=== PATIENT | female | born 1980 | race Caucasian/White ===

== ENCOUNTER 2016-08-14 05:59 | Outpatient (CLI) | payer BC ==
[~2016-08-14] VITALS: Ht 157.5 cm; Wt 63.5 kg
[~2016-08-14 05:59] MED LIST: BENZ56AE TP; DCS100C PO; FERR325C PO; FRS325T PO; IBP600T1 PO; PREN-93 PO; TRAM-42 PO
--- OUTSIDE RECORDS SUMMARY | 2016-08-14 06:03 | XMS REPORT | Continuity of Care Document ---
Author Author [facility] Organization [facility] Address Unknown Phone Unavailable Allergies Active Description Code Type Severity Reaction Onset Reported/Identified Relationship to Patient Clinical Status Yes codeine [id number] Drug Allergy Unknown N/A 10/02/2005 Yes Penicillins [id number] Drug Allergy Unknown N/A 10/02/2005 Medications Problems Date Dx Coded Attending Type Code Diagnosis Diagnosed By 11/10/2013 SALLY SOLOMON DO Ot 659.71 ABN DEL FET HT RT/RHYTHM,W OR W/O MENTIO 11/10/2013 SALLY SOLOMON DO Ot V06.1 [id number], COMBINED [ 11/10/2013 SALLY SOLOMON DO Ot V27.0 DELIVER-SINGLE LIVEBORN 09/16/2015 OBI DELEON MD, Ot S02.401A MAXILLARY FRACTURE, UNSP, INIT ENCNTR FO 09/16/2015 OBI DELEON MD Ot S02.8XXA FRACTURES OF OTH SKULL AND FACIAL BONES, 09/16/2015 OBI DELEON MD Ot W21.07XA STRUCK BY SOFTBALL, INITIAL ENCOUNTER 09/16/2015 OBI DELEON MD Ot Y92.[address] 09/16/2015 OBI DELEON MD Ot Y93.64 ACTIVITY, BASEBALL 09/16/2015 OBI DELEON MD Ot Y99.8 OTHER EXTERNAL CAUSE STATUS 09/17/2015 OBI DELEON MD Ot S02.401A MAXILLARY FRACTURE, UNSP, INIT ENCNTR FO 09/17/2015 OBI DELEON MD Ot S02.8XXA FRACTURES OF OTH SKULL AND FACIAL BONES, 09/17/2015 OBI DELEON MD Ot W21.07XA STRUCK BY SOFTBALL, INITIAL ENCOUNTER 09/17/2015 ADRIENNE TANNER, OBI Esteves Ot Y92.[address] 09/17/2015 ADRIENNE TANNER, OBI Esteves Ot Y93.64 ACTIVITY, BASEBALL 09/17/2015 ADRIENNE TANNER, OBI Esteves Ot Y99.8 OTHER EXTERNAL CAUSE STATUS 10/21/2015 Ot 620.2 OVARIAN CYST NEC/NOS 10/21/2015 SALLY SOLOMON DO Ot 789.00 ABDOMINAL PAIN, UNSPECIFIED SITE 10/22/2015 QUICK, PRAFUL W GUITAR REPAIRER Ot N64.4 MASTODYNIA 10/27/2015 QUICK, PRAFUL W GUITAR REPAIRER Ot N64.4 MASTODYNIA 11/03/2015 QUICK, PRAFUL Balwinder GUITAR REPAIRER Ot N64.4 MASTODYNIA 05/03/2016 Ot 620.2 OVARIAN CYST NEC/NOS 05/03/2016 SALLY SOLOMON DO Ot 789.00 ABDOMINAL PAIN, UNSPECIFIED SITE 05/03/2016 QUICK, PRAFUL W GUITAR REPAIRER Ot N64.4 MASTODYNIA 05/04/2016 QUICK, PRAFUL Britt GUITAR REPAIRER Ot N83.202 UNSPECIFIED OVARIAN CYST, LEFT SIDE 05/04/2016 QUICK, PRAFUL Britt GUITAR REPAIRER Ot R10.2 PELVIC AND PERINEAL PAIN 05/17/2016 QUICK, PRAFUL Britt GUITAR REPAIRER Ot N83.202 UNSPECIFIED OVARIAN CYST, LEFT SIDE 05/17/2016 QUICK, PRAFUL Britt GUITAR REPAIRER Ot R10.2 PELVIC AND PERINEAL PAIN Procedures Code Description Performed By Performed On 73.6 EPISIOTOMY 2013 Results Encounters ACCT No. Visit Date/Time Discharge Status Pt. Type Provider Facility Loc./Unit Complaint [id number] 09/16/2015 20:49:00 2015 22:34:00 DIS Emergency ADRIENNE TANNER, OBI Esteves [facility] ER FACE INJ [id number] 11/08/2013 21:57:00 2013 13:35:00 DIS Inpatient SALLY SOLOMON DO [facility] LDRP [place] [id number] 05/09/2013 07:52:00 2012 23:59:59 CLS Outpatient SALLY SOLOMON DO [facility] RAD ABD PAIN [id number] 08/14/2016 05:59:00 ACT Outpatient POLLY GRAY MD [facility] PREOP ABD PAIN [id number] 05/03/2016 10:14:00 ACT Outpatient PRAFUL BAUER [facility] RAD PELVIC PAIN [id number] 10/21/2015 08:48:00 ACT Outpatient PRAFUL BAUER [facility] RAD PAIN LT BREAST [id number] 03/10/2011 08:23:00 Document Registration
[2016-08-14] MEDS ORDERED: LACT1CAP74 PO (12:42)
[2016-08-14] MEDS ORDERED: MULT1CAP27 PO (12:42)
[2016-08-16] MEDS ORDERED: DICY10CA59 PO (11:21)
== END 2016-08-14 12:45 ==
LOC: PREOP 05:59
PROVIDERS: ATTEND Surgery Pediatric Surgery
DX: Z01.818 Encounter for other preprocedural examination (principal); K92.1 Melena

== ENCOUNTER 2016-08-16 08:30 | Day surgery (SDC) | payer BC ==
[~2016-08-16] VITALS: Ht 157.5 cm; Wt 63.5 kg
[~2016-08-16 08:30] MED LIST changes: -CATHETER FLUSH 10 ML SYR IV PRN; -DICY10CA59 PO; -IOHEXOL 350 MG/ML 100 ML (OMNIPAQUE 350) VIAL IV ONE; -NS 100 ML (IVPB) BAG IV ONE
--- OUTSIDE RECORDS SUMMARY | 2016-08-16 08:34 | XMS REPORT | Continuity of Care Document ---
Author Author [facility] Organization [facility] Address Unknown Phone Unavailable Allergies Active Description Code Type Severity Reaction Onset Reported/Identified Relationship to Patient Clinical Status Yes codeine [id number] Drug Allergy Unknown N/A 10/02/2005 Yes Penicillins [id number] Drug Allergy Unknown N/A 10/02/2005 Medications Problems Date Dx Coded Attending Type Code Diagnosis Diagnosed By 11/10/2013 SALLY SOLOMON DO Ot 659.71 ABN DEL FET HT RT/RHYTHM,W OR W/O MENTIO 11/10/2013 SALLY SOLOMON DO Ot V06.1 [id number], COMBINED [ 11/10/2013 SALLY SOLOMON DO Ot [...] PAIN, UNSPECIFIED SITE 10/22/2015 QUICK, PRAFUL W POWERHOUSE MECHANIC SUPERVISOR Ot N64.4 MASTODYNIA 10/27/2015 QUICK, PRAFUL W POWERHOUSE MECHANIC SUPERVISOR Ot N64.4 MASTODYNIA 11/03/2015 QUICK, PRAFUL W POWERHOUSE MECHANIC SUPERVISOR Ot N64.4 MASTODYNIA 05/03/2016 Ot 620.2 OVARIAN CYST NEC/NOS 05/03/2016 SOLOMON DO, SALLY C Ot 789.00 ABDOMINAL PAIN, UNSPECIFIED SITE 05/03/2016 QUICK, PRAFUL W POWERHOUSE MECHANIC SUPERVISOR Ot N64.4 MASTODYNIA 05/04/2016 QUICK, PRAFUL W POWERHOUSE MECHANIC SUPERVISOR Ot N83.202 UNSPECIFIED OVARIAN CYST, LEFT SIDE 05/04/2016 QUICK, PRAFUL W POWERHOUSE MECHANIC SUPERVISOR Ot R10.2 PELVIC AND PERINEAL PAIN 05/17/2016 QUICK, PRAFUL W POWERHOUSE MECHANIC SUPERVISOR Ot N83.202 UNSPECIFIED OVARIAN CYST, LEFT SIDE 05/17/2016 QUICK, PRAFUL W POWERHOUSE MECHANIC SUPERVISOR Ot R10.2 PELVIC AND PERINEAL PAIN 08/15/2016 MARINA TANNER, POLLY Ot K92.1 MELENA 08/15/2016 POLLY GRAY MD Ot Z01.818 ENCOUNTER FOR OTHER PREPROCEDURAL EXAMIN Procedures Code Description Performed By Performed On 73.6 EPISIOTOMY 2013 Results Encounters ACCT No. Visit Date/Time Discharge Status Pt. Type Provider Facility Loc./Unit Complaint [id number] 08/14/2016 05:59:00 2016 12:45:00 DIS Outpatient POLLY GRAY MD [facility] PREOP ABD PAIN [id number] 09/16/2015 20:49:00 2015 22:34:00 DIS Emergency OBI DELEON MD [facility] ER FACE INJ [id number] 11/08/2013 21:57:00 2013 13:35:00 DIS Inpatient SALLY SOLOMON DO [facility] LDRP PACHECO T[place]ARES [id number] 05/09/2013 07:52:00 2012 23:59:59 CLS Outpatient SALLY SOLOMON DO [facility] RAD ABD PAIN [id number] 08/16/2016 07:51:00 ACT Outpatient POLLY GRAY MD [facility] RAD ABD PAIN,PELVIC PAIN [id number] 05/03/2016 10:14:00 ACT Outpatient PRAFUL BAUER [facility] RAD PELVIC PAIN [id number] 10/21/2015 08:48:00 ACT Outpatient PRAFUL BAUER [facility] RAD PAIN LT BREAST [id number] 03/10/2011 08:23:00 Document Registration
[2016-08-16 08:35] VITALS: BP 116/80
--- OUTSIDE RECORDS SUMMARY | 2016-08-16 08:35 | XMS REPORT | Continuity of Care Document ---
Author Author [facility] Organization [facility] Address Unknown Phone Unavailable Allergies Active Description Code Type Severity Reaction Onset Reported/Identified Relationship to Patient Clinical Status Yes codeine [id number] Drug Allergy Unknown N/A 10/02/2005 Yes Penicillins [id number] Drug Allergy Unknown N/A 10/02/2005 Medications Problems Date Dx Coded Attending Type Code Diagnosis Diagnosed By 11/10/2013 SALLY SOLOMON DO Ot 659.71 ABN DEL FET HT RT/RHYTHM,W OR W/O MENTIO 11/10/2013 SALLY SOLOMON DO Ot V06.1 [id number], COMBINED [ 11/10/2013 SALLY SOLOMON DO Ot [...] PAIN, UNSPECIFIED SITE 10/22/2015 QUICK, PRAFUL W CALIBRATION TESTER Ot N64.4 MASTODYNIA 10/27/2015 QUICK, PRAFUL W CALIBRATION TESTER Ot N64.4 MASTODYNIA 11/03/2015 QUICK, PRAFUL W CALIBRATION TESTER Ot N64.4 MASTODYNIA 05/03/2016 Ot 620.2 OVARIAN CYST NEC/NOS 05/03/2016 SOLOMON DO, SALLY C Ot 789.00 ABDOMINAL PAIN, UNSPECIFIED SITE 05/03/2016 QUICK, PRAFUL W CALIBRATION TESTER Ot N64.4 MASTODYNIA 05/04/2016 QUICK, PRAFUL W CALIBRATION TESTER Ot N83.202 UNSPECIFIED OVARIAN CYST, LEFT SIDE 05/04/2016 QUICK, PRAFUL W CALIBRATION TESTER Ot R10.2 PELVIC AND PERINEAL PAIN 05/17/2016 QUICK, PRAFUL W CALIBRATION TESTER Ot N83.202 UNSPECIFIED OVARIAN CYST, LEFT SIDE 05/17/2016 QUICK, PRAFUL W CALIBRATION TESTER Ot R10.2 PELVIC AND PERINEAL PAIN 08/15/2016 MARINA TANNER, POLLY Ot K92.1 MELENA 08/15/2016 POLLY GRAY MD Ot Z01.818 ENCOUNTER FOR OTHER PREPROCEDURAL EXAMIN Procedures Code Description Performed By Performed On 73.6 EPISIOTOMY 2013 Results Encounters ACCT No. Visit Date/Time Discharge Status Pt. Type Provider Facility Loc./Unit Complaint [id number] 08/14/2016 05:59:00 2016 12:45:00 DIS Outpatient POLLY GRAY MD [facility] PREOP ABD PAIN [id number] 09/16/2015 20:49:00 2015 22:34:00 DIS Emergency OBI DELEON MD [facility] ER FACE INJ [id number] 11/08/2013 21:57:00 2013 13:35:00 DIS Inpatient SALLY SOLOMON DO [facility] LDRP PACHECO TAVARES [id number] 05/09/2013 07:52:00 2012 23:59:59 CLS Outpatient SALLY SOLOMON DO [facility] RAD ABD PAIN [id number] 08/16/2016 07:51:00 ACT Outpatient POLLY GRAY MD [facility] RAD ABD PAIN,PELVIC PAIN [id number] 05/03/2016 10:14:00 ACT Outpatient PRAFUL BAUER [facility] RAD PELVIC PAIN [id number] 10/21/2015 08:48:00 ACT Outpatient PRAFUL BAUER [facility] RAD PAIN LT BREAST [id number] 03/10/2011 08:23:00 Document Registration
[2016-08-16] MEDS ORDERED: NALOXONE 0.4 MG/ML 1 ML (NARCAN) VIAL IVP PRN (09:00)
[2016-08-16] MEDS ORDERED: FLUMAZENIL (ROMAZICON) 0.1 MG/ML 5 ML VIAL INJ PRN (09:00)
[2016-08-16] MEDS ORDERED: NS IV 500 ML 500 ML IV ONE (09:00)
--- NOTE | 2016-08-16 09:20 | Progress Note-Pre Operative ---
Pre-Operative Progress Note H&P Reviewed The H&P was reviewed, patient examined and no changes noted. Date H&P Reviewed: Aug 16, 2016 Time H&P Reviewed: 09:15 Pre-Operative Diagnosis: GERD, rectal bleed POLLY GRAY MD Aug 16, 2016 9:20 am
--- NOTE | 2016-08-16 09:20 | Conscious Sedation/ASA ---
Conscious Sedation Pre-Proced Time Reviewed: 09:15 ASA Class: 2 Airway Mallampati Classification: ([place] appropriate class) I. II. III, IV Lungs Heart ASA score ASA 1: a normal healthy patient ASA 2: a patient with a mild systemic disease (mid diabetes, controlled hypertension, obesity ASA 3: a patient with a severe systemic disease that limits activity (angina , COPD, prior Myocardial infarction) ASA 4: a patient with an incapacitating disease that is a constant threat to life (CHF, renal failure) ASA 5: a moribund patient not expected to survive 24 hrs. (ruptured aneurysm) ASA 6: a declared brain patient whose organs are being harvested. For emergent operations, add the letter E after the classification Grade 2 Sedation Plan: Analgesia, Amnesia, Plan communicated to team members, Discussed options with patient/fam, Discussed risks with patient/fam Note The patient is an appropriate candidate to undergo the planned procedure, sedation, and anesthesia. The patient immediately re-assessed prior to indication. POLLY GRAY MD Aug 16, 2016 9:20 am
[2016-08-16] MEDS ORDERED: ONDANSETRON 4 MG/2 ML (SDV) Z0FRAN IV PRN (09:30)
[2016-08-16] MEDS ORDERED: HYDROcodone/APAP 5 MG/325 MG (LORTAB) TAB PO PRN (09:30)
[2016-08-16] MEDS ORDERED: ACETAMINOPHEN 325 MG TABLET/CAPLET (TYLENOL) PO PRN (09:30)
[2016-08-16] MEDS ORDERED: morphine INJ 10 MG/ML 1ML (SYR OR VIAL) IV PRN (09:30)
[2016-08-16] MEDS ORDERED: LIDOCAINE JELLY 2% (XYLOCAINE) 5 ML TUBE ONE (09:56)
[2016-08-16] MEDS ORDERED: fentaNYL INJECTION 100 MCG/2 ML AMP ONE ×3 (09:56→10:43)
[2016-08-16] MEDS ORDERED: MIDAZOLAM 2 MG/2 ML (VERSED) VIAL ONE ×7 (09:57→10:57)
[2016-08-16] MEDS: fentaNYL INJECTION 100 MCG/2 ML AMP IVP PRN ×4 (10:35→10:50)
[2016-08-16] MEDS: MIDAZOLAM 2 MG/2 ML (VERSED) VIAL IVP PRN ×7 (10:37→11:02)
--- NOTE | 2016-08-16 11:20 | Progress Note-Post Operative ---
Post-Operative Progess Note Pre-Operative Diagnosis rectal bleed, abd pain Post-Operative Diagnosis chronic stage 2 ext and int hemorrhoid, redundant colon. Post-Op Procedure Note Date of Procedure: Aug 16, 2016 Name of Procedure: Colonoscopy Anesthesia Type CS Estimated blood loss (mL): POLLY Bergeron MD Aug 16, 2016 11:20 am
[2016-08-16] MEDS ORDERED: DICY10CA59 PO ×2 (11:21)
--- NOTE | 2016-08-16 11:22 | Discharge Inst-Surgical ---
D/C Lap Instructions-KIDO New, Converted, or Re-Newed RX: RX on Chart Follow Up PRN Activity as tolerated High Fiber Diet 25g or more per day Avoid Alcohol, Caffeine, Spicy [place] and Acid foods. Drink 64 fluid oz or more of fluids per day. Symptoms to Report: Fever over 101 degree F, Nausea/Vomiting If any problems/questions: Contact your physician or go to Emergency Room POLLY GRAY MD Aug 16, 2016 11:22 am
[2016-08-16 11:40] VITALS: BP 105/65
[2016-08-16 12:20] VITALS: BP 105/61
[2016-08-16 12:26] VITALS: BP 105/61
--- NOTE | 2016-08-16 15:06 | OPERATIVE REPORT ---
PROCEDURE PHYSICIAN: POLLY THOMSON DATE OF PROCEDURE: 08/16/2016 ATTENDING DOG HANDLER OR TRAINER: Minerva Calalway APRN. PREOPERATIVE DIAGNOSIS: 1. Abdominal pain. 2. Rectal bleed. POSTOPERATIVE DIAGNOSES: 1. Chronic, stage II external and internal hemorrhoids. 2. The remainder of the rectum and colon were normal. There was a redundant colon at the hepatic as well as splenic flexure. PROCEDURE: Colonoscopy. SURGEON: Dr. Thomson. ANESTHESIA: Conscious sedation. ESTIMATED BLOOD LOSS: Minimal. FINDINGS: 1. Chronic Stage II external and internal hemorrhoids, not actively edematous or inflamed and no bleeding. 2. There were no palpable masses. 3. There was no mucosal inflammatory changes, as well as no neoplasms. 4. There was a redundancy of the colon at what appeared to be the splenic and hepatic flexure. DISPOSITION: The patient tolerated procedure well. Laurie Valenzuela is a 36-year-old female with abdominal pain and mild rectal bleeding. She reports that she has had these issues for approximately one year. She did undergo a uterine biopsy recently and states that since that time she has felt more of fullness sensation as well as crampy pain. She also reports that she does have some well-formed stools and has noticed some small amounts of self-limited blood after bowel movements. She does not report any family history of colon cancer. PROCEDURE: The patient was brought to the endoscopy suite, laid in the left lateral decubitus position. After adequate IV pain and sedative medications and conscious sedation anesthesia, a digital rectal examination was performed. Chronic, stage II external and internal hemorrhoids were identified which were not actively edematous or inflamed and no bleeding. Normal sphincter tone was felt and there were no palpable masses. The endoscope was then intubated and the anus, rectum gently insufflated. The endoscope was advanced through the valves of [place] the rectum where no polyps or any neoplasms identified. The endoscope was then advanced through the sigmoid colon where no diverticulosis identified. We then proceeded through the remainder of the descending, transverse, and ascending colon, the cecum. These segments were normal. There were folds within the hepatic and splenic flexure most likely consistent with redundant colon, which may have a higher association with irritable bowel type of symptoms. There were no mucosal inflammatory changes identified throughout the entire colon and rectum. There were also no polyps or any neoplasms. The endoscope was then slowly withdrawn while taking a second look and suctioning of residual air with no additional findings. The patient tolerated procedure well. We again feel that her major of her symptoms are due to constipation, predominant irritable bowel syndrome and our recommendation would be high fiber diet with at least 25 to 30 grams of fiber per day, as well as at least 64 fluid ounces of water daily to promote soft stools on a daily basis. Over time this discomfort and pressure sensation should resolve on its own. We will also proceed with a trial of Bentyl on a p.r.n. basis to help with her crampy abdominal pain in hopes of helping her crampy abdominal pain. Job ID: [id number] Dictated Date: 08/16/2016 11:14:47 Plant Inspector Date: 08/16/2016 14:53:42 / glenn GOODEN
== END 2016-08-16 12:52 | disposition home or self-care (01) ==
LOC: ENDO 08:30
PROVIDERS: ATTEND Surgery Pediatric Surgery
DX: K64.1 Second degree hemorrhoids (principal)
CPT/HCPCS: 84703

== ENCOUNTER → 2016-08-16 | Outpatient (CLI) | payer BC ==
[~2016-08-16] MED LIST changes: +CATHETER FLUSH 10 ML SYR IV PRN; +DICY10CA59 PO; +IOHEXOL 350 MG/ML 100 ML (OMNIPAQUE 350) VIAL IV ONE; +LACT1CAP74 PO; +MULT1CAP27 PO; +NS 100 ML (IVPB) BAG IV ONE
--- OUTSIDE RECORDS SUMMARY | 2016-08-16 07:54 | XMS REPORT | Continuity of Care Document ---
Author Author [facility] Organization [facility] Address Unknown Phone Unavailable Allergies Active Description Code Type Severity Reaction Onset Reported/Identified Relationship to Patient Clinical Status Yes codeine [id number] Drug Allergy Unknown N/A 10/02/2005 Yes Penicillins [id number] Drug Allergy Unknown N/A 10/02/2005 Medications Problems Date Dx Coded Attending Type Code Diagnosis Diagnosed By 11/10/2013 SALLY SOLOMON DO Ot 659.71 ABN DEL FET HT RT/RHYTHM,W OR W/O MENTIO 11/10/2013 SALLY SOLOMON DO Ot V06.1 [id number], COMBINED [ 11/10/2013 SALLY SOLOMON DO Ot [...] 10/21/2015 Ot 620.2 OVARIAN CYST NEC/NOS 10/21/2015 SOLOMON DO, SALLY C Ot 789.00 ABDOMINAL PAIN, UNSPECIFIED SITE 10/22/2015 QUICK, PRAFUL W DISTRICT PLANT SUPERINTENDENT Ot N64.4 MASTODYNIA 10/27/2015 QUICK, PRAFUL W DISTRICT PLANT SUPERINTENDENT Ot N64.4 MASTODYNIA 11/03/2015 QUICK, PRAFUL W DISTRICT PLANT SUPERINTENDENT Ot N64.4 MASTODYNIA 05/03/2016 Ot 620.2 OVARIAN CYST NEC/NOS 05/03/2016 SOLOMON DO, SALLY C Ot 789.00 ABDOMINAL PAIN, UNSPECIFIED SITE 05/03/2016 QUICK, PRAFUL W DISTRICT PLANT SUPERINTENDENT Ot N64.4 MASTODYNIA 05/04/2016 QUICK, PRAFUL W DISTRICT PLANT SUPERINTENDENT Ot N83.202 UNSPECIFIED OVARIAN CYST, LEFT SIDE 05/04/2016 QUICK, PRAFUL W DISTRICT PLANT SUPERINTENDENT Ot R10.2 PELVIC AND PERINEAL PAIN 05/17/2016 QUICK, PRAFUL W DISTRICT PLANT SUPERINTENDENT Ot N83.202 UNSPECIFIED OVARIAN CYST, LEFT SIDE 05/17/2016 QUICK, PRAFUL W DISTRICT PLANT SUPERINTENDENT Ot R10.2 PELVIC AND PERINEAL PAIN 08/15/2016 MARINA TANNER, POLLY Ot K92.1 MELENA 08/15/2016 POLLY GRAY MD Ot Z01.818 ENCOUNTER FOR OTHER PREPROCEDURAL EXAMIN Procedures Code Description Performed By Performed On 73.6 EPISIOTOMY 2013 Results Encounters ACCT No. Visit Date/Time Discharge Status Pt. Type Provider Facility Loc./Unit Complaint [id number] 08/14/2016 05:59:00 2016 12:45:00 DIS Outpatient POLLY GRAY MD [facility] PREOP ABD PAIN [id number] 09/16/2015 20:49:00 2015 22:34:00 DIS Emergency OBI DELEON MD [facility] ER FACE INJ [id number] 11/08/2013 21:57:00 2013 13:35:00 DIS Inpatient SALLY SOLOMON DO [facility] LDRP [place] [id number] 05/09/2013 07:52:00 2012 23:59:59 CLS Outpatient SALLY SOLOMON DO [facility] RAD ABD PAIN [id number] 08/16/2016 07:51:00 ACT Outpatient POLLY GRAY MD [facility] RAD ABD PAIN,PELVIC PAIN [id number] 05/03/2016 10:14:00 ACT Outpatient PRAFUL BAUER [facility] RAD PELVIC PAIN [id number] 10/21/2015 08:48:00 ACT Outpatient PRAFUL BAUER [facility] RAD PAIN LT BREAST [id number] 03/10/2011 08:23:00 Document Registration
--- NOTE | 2016-08-16 09:38 | Diagnostic Imaging Report ---
PROCEDURE: CT abdomen and pelvis with contrast. TECHNIQUE: Multiple contiguous axial images were obtained through the abdomen and pelvis after administration of intravenous contrast. INDICATION: Abdominal pain. 100 mL of Omnipaque 350 was administered intravenously. FINDINGS: The lung bases appear clear. The liver, the gallbladder, the spleen, the pancreas, and the adrenal glands appear unremarkable. The kidneys have symmetric enhancement and contrast excretion. There is no hydronephrosis. The abdominal aorta is normal in caliber. No para-aortic significantly enlarged lymph nodes seen. The appendix appears normal. There is no bowel obstruction. There is excessive amount of fluid seen in the rectum and sigmoid colon without abnormal dilatation. This might relate to mild colitis. Correlate clinically. No lymphadenopathy or mass in the pelvis is seen. There are hypodensities seen within the right side of the cervix may relate to nabothian cyst. The osseous structures appear grossly unremarkable. IMPRESSION: 1. Excessive amount of fluid content in the rectum and sigmoid may relate to mild colitis. 2. Nonspecific hypodensities near the left side of the cervix is favored to be related to nabothian cysts. Correlation with pelvic exam and Pap smears is suggested. Dictated by: Dictated on workstation # [id number]
== END ==
LOC: RAD 07:51
PROVIDERS: ATTEND Surgery Pediatric Surgery
DX: R93.3 Abnormal findings on diagnostic imaging of other parts of digestive tract (principal); R93.8 Abnormal findings on diagnostic imaging of other specified body structures; R10.2 Pelvic and perineal pain; R10.84 Generalized abdominal pain
CPT/HCPCS: 74177

== ENCOUNTER → 2016-11-02 | Outpatient (CLI) | payer BC ==
[~2016-11-02] MED LIST changes: +DICY10CA59 PO
--- NOTE | 2016-11-03 19:36 | ECHOCARDIOGRAPHY REPORT ---
DATE OF SERVICE: 11/02/2016 EXERCISE STRESS ECHOCARDIOGRAM CLINICAL DIAGNOSES: Palpitations, chest discomfort. BASELINE: Echocardiography showed normal global left ventricular systolic function and normal regional wall motion and left ventricular ejection fraction approximately 60%. Subsequently, exercise was carried out on a treadmill. Mauricio protocol was employed. Heart rate and blood pressure responses to exercise were normal. The test was stopped on account of fatigue. There was no significant ST-segment deviation to suggest ischemia. There was no significant exercise-induced arrhythmia. Echocardiography was repeated immediately post-exercise, and it showed normal augmentation of wall motion and ejection fraction. No regional wall motion abnormalities were seen. The patient attained 12.8 METS of workload and exercised for a total of 12 minutes in the Mauricio protocol for this study. She did attain more than 100% of maximum predicted heart rate. CONCLUSIONS: 1. No evidence of exercise-induced myocardial ischemia or arrhythmia on this study. 2. Normal global left ventricular systolic function with an ejection fraction of approximately 60% at baseline. Job ID: [id number] DocumentID: [id number] Dictated Date: 11/03/2016 14:12:24 Cloth Shearer Date: 11/03/2016 19:29:01 Dictated By: PRERNA PELLETIER MD, MA, FACP, FACC,
--- NOTE | 2016-11-03 19:39 | ECHOCARDIOGRAPHY REPORT ---
DATE OF SERVICE: 11/02/2016 ECHOCARDIOGRAPHY ORDERING PHYSICIAN: Dr. Porter. PRIMARY PHYSICIAN: Dr. Salazar. CLINICAL DIAGNOSES: Palpitations, chest discomfort. MEASUREMENTS: LV diameter diastolic 4.5. IVS thickness, diastolic 0.7. LVPW thickness, diastolic 0.8. Aortic root 2.9. Left atrium 2.4. DESCRIPTION: Two dimensional echocardiography shows normal global left ventricular systolic function and normal regional wall motion. Aortic, mitral and tricuspid valve leaflets show good leaflet excursion. There is no significant pericardial effusion. Doppler imaging did not indicate significant valvular regurgitation or stenosis. On the subcostal views available, there was no distinct evidence of significant intracardiac shunt. Inferior vena cava did not appear to be dilated. Pulmonary artery systolic pressure is estimated to be 25 to 30 mmHg. CONCLUSIONS: 1. Normal global left ventricular systolic function with an ejection fraction of 60%. 2. Trivial tricuspid regurgitation. 3. No evidence of significant valvular stenosis. 4. Pulmonary artery systolic pressure is estimated to be 25 to 30 mmHg. Job ID: [id number] DocumentID: [id number] Dictated Date: 11/03/2016 14:09:21 Tool And Die Repairer Date: 11/03/2016 15:39:19 Dictated By: PRERNA PORTER MD, MA, FACP, FACC,
== END ==
LOC: CARD 11:39
PROVIDERS: ATTEND Internal Medicine Cardiovascular Disease
DX: R05 Cough (principal); R00.2 Palpitations; R07.89 Other chest pain; R06.02 Shortness of breath
CPT/HCPCS: 93306; 93351

== ENCOUNTER → 2016-11-08 | Outpatient (CLI) | payer BC ==
--- NOTE | 2016-11-08 10:39 | Diagnostic Imaging Report ---
INDICATION: Lower respiratory infection. EXAMINATION: PA and lateral chest. FINDINGS: The heart size and pulmonary vascularity are normal. The lungs are clear. There are no effusions or pneumothoraces. IMPRESSION: Negative chest. Dictated by: Dictated on workstation # [id number]
== END ==
LOC: RAD 08:30
PROVIDERS: ATTEND Nurse Practitioner Family
DX: R05 Cough (principal)
CPT/HCPCS: 71020

== ENCOUNTER → 2016-11-08 | Outpatient (CLI) | payer BC ==
[~2016-11-08] MED LIST changes: +RT-ALBUTEROL SULF 2.5 MG/3 ML PRE-MIX VIAL IH ONE; +RT-ALBUTEROL SULF 2.5 MG/3 ML PRE-MIX VIAL ONE
== END ==
LOC: RT 08:26
PROVIDERS: ATTEND Internal Medicine Cardiovascular Disease
DX: R00.2 Palpitations (principal); R07.89 Other chest pain; R06.02 Shortness of breath; R05 Cough
CPT/HCPCS: 94060; 94640; 94726; 94729

== ENCOUNTER → 2019-04-15 | Outpatient (CLI) | payer BC ==
[~2019-04-15] MED LIST changes: -RT-ALBUTEROL SULF 2.5 MG/3 ML PRE-MIX VIAL IH ONE; -RT-ALBUTEROL SULF 2.5 MG/3 ML PRE-MIX VIAL ONE
--- NOTE | 2019-04-15 11:51 | Diagnostic Imaging Report ---
PROCEDURE: US Renal Bilateral. INDICATION: Left flank pain TECHNIQUE: Multiple real-time grayscale sonographic images were obtained of the kidneys. COMPARISON: None FINDINGS: RIGHT KIDNEY: 11.1 x 3.8 x 3.4 cm. LEFT KIDNEY: 10.3 x 5.4 x 5.3 cm. The kidneys have a relatively unremarkable appearance with normal echotexture of the renal parenchyma. No definitive calcification or hydronephrosis. URINARY BLADDER: The partially distended bladder has an unremarkable appearance. Bilateral ureteral jets are present. IMPRESSION: 1. Unremarkable renal sonogram. Dictated by: Dictated on workstation # [id number]
--- NOTE | 2019-04-15 12:48 | Diagnostic Imaging Report ---
INDICATION: Routine screening. COMPARISON: Left mammogram dated 10/21/2015. TECHNIQUE: 2D and 3D bilateral screening mammography was performed with CAD. FINDINGS: Both breasts are heterogeneously dense, limiting the sensitivity of mammography. No dominant mass or malignant appearing microcalcifications are seen. The axillae are unremarkable. IMPRESSION: No mammographic features suspicious for malignancy are identified. ACR BI-RADS Category 1: Negative. Result letter will be mailed to the patient. Note: At least 10% of breast cancer is not imaged by mammography. Dictated by: Dictated on workstation # [id number]
== END ==
LOC: RAD 08:58
PROVIDERS: ATTEND Obstetrics & Gynecology
DX: Z12.31 Encounter for screening mammogram for malignant neoplasm of breast (principal); R10.9 Unspecified abdominal pain
CPT/HCPCS: 76770; 77067

== ENCOUNTER → 2020-06-11 | Outpatient (CLI) | payer BC ==
--- NOTE | 2020-06-11 14:45 | Diagnostic Imaging Report ---
Indication: Left breast pain laterally. Correlation is made with prior mammogram 04/15/2019. 2-D and 3-D bilateral diagnostic mammography was performed with CAD. Both breasts are heterogeneous dense, limiting sensitivity of mammography. Rounded densities in the right breast are noted consistent with cysts. No masses on the left are identified. No malignant appearing microcalcifications are seen. Axillae are unremarkable. IMPRESSION: BI-RADS 0 Multiple cysts right breast. No abnormality in the lateral left breast is identified at the area of patient's pain. Even so, directed sonographic interrogation of the area of pain is recommended and will be performed today. ACR BI-RADS Category 0: Incomplete. (Needs additional imaging evaluation). Result letter will be mailed to the patient. Note: At least 10% of breast cancer is not imaged by mammography. Dictated by: Dictated on workstation # [id number]
--- NOTE | 2020-06-11 14:49 | Diagnostic Imaging Report ---
INDICATION: Mastodynia. Correlation is made to a diagnostic mammogram earlier same day. Sonographic interrogation of the outer left breast was performed at the area of pain. There is a tiny cyst 1 o'clock location approximately 2-3 mm in size, likely incidental. No solid mass is detected. No other sonographic abnormalities are seen. IMPRESSION: BI-RADS Category 2 Tiny cyst in the upper outer left breast. No other significant abnormality is detected. ACR BI-RADS Category 2: Benign findings. Result letter will be mailed to the patient. Note: At least 10% of breast cancer is not imaged by mammography. Dictated by: Dictated on workstation # [id number]
== END ==
LOC: RAD 12:45
PROVIDERS: ATTEND Obstetrics & Gynecology
DX: N60.01 Solitary cyst of right breast (principal)
CPT/HCPCS: 76642; 77066; G0279; 77062

== ENCOUNTER 2021-04-06 09:05 | Outpatient (RCR) | payer BC ==
[~2021-04-06] VITALS: Ht 157.5 cm; Wt 61.2 kg
[2021-04-06] MEDS ORDERED: OMEP40CA6 PO (10:42)
[2021-04-08] MEDS ORDERED: PANT40TA2 PO (12:21)
== END 2021-04-06 11:22 | disposition home or self-care (01) ==
LOC: PREOP 09:05
PROVIDERS: ATTEND Surgery
DX: Z01.818 Encounter for other preprocedural examination (principal)

== ENCOUNTER 2021-04-08 11:17 | Day surgery (SDC) | payer BC ==
[~2021-04-08] VITALS: Ht 157.5 cm; Wt 61.2 kg
[~2021-04-08 11:17] MED LIST changes: +OMEP40CA6 PO
[2021-04-08] MEDS ORDERED: LACTATED RINGERS 1,000 ML IV ONE (11:24)
[2021-04-08] MEDS ORDERED: LACTATED RINGERS 1,000 ML IV STA (11:46)
[2021-04-08] MEDS ORDERED: HURRICAINE EXT TUBE (BENZOCAINE) XX PRN (12:00)
[2021-04-08] MEDS ORDERED: LIDOCAINE JELLY 2% 6 ML SYRINGE MM PRN (12:00)
[2021-04-08 12:07] VITALS: BP 107/71
--- NOTE | 2021-04-08 12:20 | Progress Note-Pre Operative ---
Pre-Operative Progress Note H&P Reviewed The H&P was reviewed, patient examined and no changes noted. Date Seen by Provider: Apr 08, 2021 Time Seen by Provider: 12:00 Date H&P Reviewed: Apr 08, 2021 Time H&P Reviewed: 12:00 Pre-Operative Diagnosis: GERD, dysphagia POLLY GRAY MD Apr 08, 2021 12:20
[2021-04-08] MEDS ORDERED: PANT40TA2 PO (12:21)
--- NOTE | 2021-04-08 12:22 | Discharge Inst-Surgical ---
D/C Lap Instructions-KIDO New, Converted, or Re-Newed RX: RX on Chart Follow Up Activity as tolerated High Fiber Diet 25g or more per day Avoid Alcohol, Caffeine, Spicy [place] and Acid foods. Drink 64 fluid oz or more of fluids per day. Symptoms to Report: Fever over 101 degree F, Nausea/Vomiting If any problems/questions: Contact your physician or go to Emergency Room POLLY GRAY MD Apr 08, 2021 12:22
[2021-04-08] MEDS ORDERED: ONDANSETRON 4 MG (ZOFRAN) ORAL DISSOLVE TAB PO PRN (12:30)
[2021-04-08] MEDS ORDERED: ONDANSETRON 4 MG/2 ML (SDV) Z0FRAN IVP PRN (12:30)
[2021-04-08 13:40] VITALS: BP 88/51
[2021-04-08 13:45] VITALS: BP 86/51
--- NOTE | 2021-04-08 13:49 | Anesthesia-General Post-Op ---
MAC Patient Condition Mental Status/LOC: Same as Preop Cardiovascular: Satisfactory Nausea/Vomiting: Absent Respiratory: Satisfactory Pain: Controlled Complications: Absent Post Op Complications Complications None Follow Up Care/Instructions Patient Instructions None needed. Anesthesiology Discharge Order Discharge Order Patient is doing well, no complaints, stable vital signs, no apparent adverse anesthesia problems. No complications reported per nursing. HORACE SPANN CRNA Apr 08, 2021 13:49
[2021-04-08 13:55] VITALS: BP 95/55
--- NOTE | 2021-04-08 14:14 | Progress Note-Post Operative ---
Post-Operative Progess Note Surgeon (s)/Technician Biological Health (s) Surgeon POLLY GRAY MD Technician Biological Health: none Pre-Operative Diagnosis GERD, dysphagia Post-Operative Diagnosis reflux eosphagitis(stage 2-3), mild dist esoph stricture, small HH(1cm), moderate-severe gastritis. Procedure & Operative Findings Date of Procedure 04/08/21 Procedure Performed/Findings EGD with bx and balloon dilatation. Anesthesia Type mac Estimated Blood Loss Estimated blood loss (mL): minimal Specimens/Packing Specimens Removed ge jxn, antrum POLLY GRAY MD Apr 08, 2021 14:14
[2021-04-08 14:15] VITALS: BP 105/65
--- NOTE | 2021-04-08 20:32 | OPERATIVE REPORT ---
DATE OF SERVICE: 04/08/2021 ATTENDING PRIMARY CHANGE CONSULTANT: Barb Callaway APRN. PREOPERATIVE DIAGNOSES: Gastroesophageal reflux disease and dysphagia. POSTOPERATIVE DIAGNOSES: Reflux esophagitis stage II, mild distal esophageal stricture, small hiatal hernia approximately 1.5 cm in size, moderate to severe gastritis and no distal obstructions. PROCEDURES PERFORMED: EGD with biopsy and balloon dilatation. SURGEON: Polly Gray MD. ANESTHESIA: Monitored anesthesia care. ESTIMATED BLOOD LOSS: Minimal. FINDINGS: Reflux esophagitis stage II, mild distal esophageal stricture, small hiatal hernia approximately 1.5 cm in size, moderate to severe gastritis and no distal obstructions. DISPOSITION: The patient tolerated the procedure well. INDICATIONS FOR PROCEDURE: The patient is a 41-year-old female, who has had issues with gastroesophageal reflux disease for several years; however, this has progressed to issues with the dysphagia with some types of medications as well as lean meats. She has also had issues with weight loss as well. She also does report abdominal bloating after meals as well. DESCRIPTION OF PROCEDURE: The patient was brought to the endoscopy suite and laid in the left lateral decubitus position. After adequate IV pain and sedative medications and monitored anesthesia care, the mouthpiece was applied. The endoscope was placed in the mouth, visualizing the pharynx and hypopharyngeal region. Vocal cords, epiglottis and vallecula identified and appeared to be normal. The endoscope was then gently intubated, the esophageal opening and esophagus insufflated. At the level of the GE junction, a reflux esophagitis between stage II and III identified. There was a possibility of a stricture; however, we could not tell based on the lower esophageal sphincter contractions. A biopsy was taken with forceps with visualization of good hemostasis. The endoscope was then advanced in the stomach and endoscope retroflexed, visualizing a small hiatal hernia approximately 1.5 cm in size. There was a moderate to severe gastritis, which was more focused towards the antrum. A biopsy was taken of this region to rule out H. pylori with visualization of good hemostasis. The endoscope was then advanced to the pylorus and the first and second portion of the duodenum, which appeared normal with no distal obstructions. We then proceeded with balloon dilatation of the lower esophageal stricture and we proceeded in a gradual stepwise fashion from 2, 4, then 6 atmospheres of pressure with only mild to moderate resistance and left this in place for approximately 60 seconds. The balloon was then desufflated and removed with visualization of good hemostasis as well as no mucosal tears. The endoscope was then slowly withdrawn while taking a second look and suctioning of residual air with no additional findings. The patient tolerated the procedure well. We feel that the majority of her symptoms are likely due to the reflux esophagitis as well as the gastritis and acid hypersecretion causing some types of foods to stick to the mucosa causing the dysphagia. We will recommend the necessary lifestyle and dietary accommodation including small and more frequent meals, avoidance of eating at night as well as head elevation while lying supine. We will also start her on Protonix 40 mg daily. There is also the possibility of a gallbladder being the etiology and if she continues to have symptoms, we will proceed with an ultrasound as well as a possible HIDA scan if indicated. Job ID: [id number] DocumentID: [id number] Dictated Date: 04/08/2021 13:51:12 Part Time Flexible Clerk Date: 04/08/2021 20:32:13 Dictated By: POLLY GRAY MD
== END 2021-04-08 14:19 | disposition home or self-care (01) ==
LOC: ENDO 11:17
PROVIDERS: ATTEND Surgery
DX: K21.00 Gastro-esophageal reflux disease with esophagitis, without bleeding (principal); K22.2 Esophageal obstruction; K44.9 Diaphragmatic hernia without obstruction or gangrene; K29.70 Gastritis, unspecified, without bleeding; K29.50 Unspecified chronic gastritis without bleeding; Z79.899 Other long term (current) drug therapy
CPT/HCPCS: 84703

== ENCOUNTER → 2022-01-03 | Outpatient (CLI) | payer BC ==
[~2022-01-03] MED LIST changes: +PANT40TA2 PO
--- NOTE | 2022-01-03 18:22 | Diagnostic Imaging Report ---
Indication: Routine screening. Comparison is made with prior mammograms of 06/11/2020 and 04/15/2019. 2-D and 3-D bilateral screening mammography was performed with CAD. Both breasts are heterogeneously dense, limiting the sensitivity of mammography. There is a density in the central left breast on the MLO view at the nipple line with some questionable associated architectural distortion. Additional views of this area are recommended. No definite corresponding density on the CC view is seen. The right breast is unremarkable. Axillae are unremarkable. IMPRESSION: BI-RADS Category 0 Left breast density and questionable architectural distortion. Additional views are recommended for further evaluation. ACR BI-RADS Category 0: Incomplete. (Needs additional imaging evaluation). Result letter will be mailed to the patient. Note: At least 10% of breast cancer is not imaged by mammography. Dictated by: Dictated on workstation # [id number]
== END ==
LOC: RAD 07:13
PROVIDERS: ATTEND Nurse Practitioner Family
DX: Z12.31 Encounter for screening mammogram for malignant neoplasm of breast (principal)
CPT/HCPCS: 77063; 77067

== ENCOUNTER → 2022-01-09 | Outpatient (CLI) | payer BC ==
--- NOTE | 2022-01-09 14:47 | Diagnostic Imaging Report ---
INDICATION: Abnormal mammogram. CORRELATION is made with diagnostic mammogram earlier the same day and screening mammogram from 01/03/2022. Sonographic interrogation of the left breast does show a simple cyst at the 3:00 location, 5 to 6 cm from the nipple, measuring 7 mm in diameter. There is also a simple appearing cyst at the 9:00 location, 3 cm from the nipple measuring 1.1 x 0.8 x 1.0 cm. These likely account for the mammographic densities. No solid masses are detected. IMPRESSION: BI-RADS Category 2 Simple cyst at the 3 and 9:00 location of the left breast, corresponding to the mammographic densities. The patient may return to routine annual screening mammography. ACR BI-RADS Category 2: Benign findings. Result letter will be mailed to the patient. Note: At least 10% of breast cancer is not imaged by mammography. Dictated by: Dictated on workstation # [id number]
--- NOTE | 2022-01-09 14:48 | Diagnostic Imaging Report ---
INDICATION: Left breast density. Patient presents for additional views. COMPARISON: Correlation is made with the screening study from 01/03/2022. TECHNIQUE: Unilateral left 2D and 3D diagnostic mammography was performed. FINDINGS: Additional views show some persistent somewhat nodular densities in the left breast both in the medial and lateral side. These are fairly well-circumscribed and may represent cysts. No definite architectural distortion with additional views is identified. IMPRESSION: There are circumscribed densities in the medial and lateral aspect of the left breast at the level of the nipple line. Further evaluation with ultrasound is recommended and will be performed today. ACR BI-RADS Category 0: Incomplete. (Needs additional imaging evaluation). Result letter will be mailed to the patient. Note: At least 10% of breast cancer is not imaged by mammography. Dictated by: Dictated on workstation # [id number]
== END ==
LOC: RAD 13:15
PROVIDERS: ATTEND Surgery
DX: N63.25 Unspecified lump in the left breast, overlapping quadrants (principal)
CPT/HCPCS: 76641; 77065; G0279